=== PATIENT | female | born 1945 | race Caucasian/White ===

== ENCOUNTER 2017-12-21 21:50 | Inpatient (IN) ==
[2017-12-21] MEDS ORDERED: TORADOL 30 MG VIAL IVP STA (22:25)
[2017-12-21] MEDS ORDERED: ZOFRAN INJ 4 MG VIAL IVP ONE (22:25)
[2017-12-21] MEDS ORDERED: ZOFRAN INJ 4 MG VIAL ONE (22:26)
[2017-12-21] MEDS ORDERED: TORADOL 30 MG VIAL ONE (22:27)
--- NOTE | 2017-12-21 22:30 | ED.ABDFE ---
HPI - PCP Primary Care Physician: LISSET - Complaint Chief Complaint Doctors Comments: Patient is complaining of diffuse abdominal pain that is sharp like someone has a knife inside her stomach with the pain 10 of 10. States she has not been able to eat today and thought if she threw up it would make her feel better but she vomited and the pain is still there. States she has two bowel movements today. She is a patient of Dr. Pereyra in [place]. States she has had a hysterectomy, appendectomy and part of her intestine was removed by Dr. Kimball. She denies dysuria or delmar. She denies problems with stomach ulcers. Chief Complaint:: "I HAVE PAIN IN MY STOMACH, PAIN FEELS LIKE IT IS IN MY WHOLE GUT AREA SINCE ABOUT MID DAY. JUST STARTED GETTING NAUSEA." HAD TO NORMAL BOWEL MOVEMENTS TODAY. - Nurses notes reviewed Nurses Notes Review: Yes - Source History Provided: Patient - Mode of arrival Mode of Arrival: Ambulatory - Timing Onset of Chief Complaint: 12/21/17 Came on: Gradually - Duration Duration: Constant How lon Duration: Days - Location Location: Diffuse, Epigastric, Suprapubic - Severity Severity: Moderate - Quality Quality: Sharp, Generalized - Context Onset: At Rest History of: Abdominal surgery - Modifying Worsening Factors: Nothing Improving Factors: Nothing - Associated signs and symptoms Associated Signs and Symptoms: Nausea, Vomiting - Time seen Time Seen by Provider: 12/21/17 22:18 PMH - PMH Past Medical History: Yes Past Medical History: Hypertension Past Surgical History: Yes Surgical History: Appendectomy, Hysterectomy - Family History History of Family Medical Conditions: No - Social History Alcohol Use: Occasionally Do you use any recreational Drugs:: No Lives Where: Home - infectious screening Have you traveled outside the country in the last 6 months?: No ROS - Review of Systems Constitutional: No Symptoms Reported, Weakness, Loss of Appetite. negative: See HPI, Chills, Diaphoresis, Fever, Malaise, Irritable, Fatigue, Other Eyes: No Symptoms Reported ENTM: No Symptoms Reported Respiratoy: No Symptoms Reported. negative: See HPI, Productive Cough, Non- Productive Cough, Moist Cough, Dry Cough, Hacking Cough, Barking Cough, Brassy Cough, Orthopnea, Short of Breath, Stridor, Wheezing, Hemoptysis, Other Cardiovascular: No Symptoms Reported Gastrointestinal/Abdominal: No Symptoms Reported, Abdominal Pain, Nausea, Vomiting Genitourinary: No Symptoms Reported. negative: See HPI, Discharge, Dysuria, Frequency, Hematuria, Pain, Bleeding, Other Neurological: No Symptoms Reported Musculoskeletal: No Symptoms Reported, Back Pain (chronic back pain; no recent trauma). negative: See HPI, Gout, Joint Pain, Joint Swelling, Muscle Pain, Muscle Stiffness, Neck Pain, Right, Left, Neck, Chest wall, Rib(s), Back, Shoulder, Arm, Elbow, Forearm, Wrist, Hand, Pelvis, Hip, Leg, Knee, Ankle, Foot , Other Integumentary: No Symptoms Reported Hematologic/Lymphatic: No Symptoms Reported Endocrine: No Symptoms Reported Psychiatric: No Symptoms Reported. negative: See HPI, Anxiety, Depression, Hallucinations, Excessive crying, Suicidal, Other PE - General Limitations: No Limitations General Appearance: Alert, In Distress (moderate) - Head Head Exam: Normal Inspection, Atraumatic, Normocephalic - Eyes Eye exam: Normal Appearance, PERRL, EOMI. negative: Scleral Icterus, Conjunctival Injection, Nystagmus, Miosis, Mydrasis, Periorbital Swelling, Periorbital Tenderness, Other - ENT ENT Exam: Normal Exam, Normal Oropharynx, Normal External Ear Exam, Mucous Membranes Moist, TM's Normal Bilaterally - Neck Neck Exam: Normal Inspection, Full ROM, Trachea Midline - Chest Chest Inspection: Normal Inspection, Symmetric Chest Wall Rise. negative: Tenderness, Rash, Abscess, Other - Respiratory Respiratory Exam: Normal Lung Sounds Bilat Respiratory Exam: Bilateral Clear to Auscultation - Cardiovascular Cardiovascular Exam: Regular Rate, Normal Rhythm, Normal Heart Sounds - Abdominal Exam Abdominal Exam: Normal Inspection, Normal Bowel Sounds, Soft, Tenderness ( suprapubic and epigastric tenderness), Guarding Abdominal Tenderness: Epigastrium, Suprapubic, Moderate - Rectal Rectal Exam: Deferred - Back Back Exam: Normal Inspection, Full ROM, Tenderness (midline tenderness on palpation) - Extremeties Extremities Exam: Normal Inspection, Full ROM, Normal Capillary Refill. negative: Tenderness, Edema, Joint Swelling, Calf Tenderness, Other - External Exam: Female: Deferred : Speculum Exam (Female): Deferred : Bimanual Exam (female): Deferred - Neurologic Neurological Exam: Alert, Oriented X3, CN II-XII Intact, Reflexes Normal. negative: Normal Gait (gait not tested) - Psychiatric Psychiatric Exam: Normal Affect, Normal Mood - Skin Skin Exam: Warm, Dry, Intact, Normal Color. negative: Rash, Cyanosis, Diaphoresis, Erythema, Pallor, Mottled, Other - Vital Signs Vitals: Temperature 98.2 F Pulse Rate 92 Respiratory Rate 18 Blood Pressure 97/56 O2 Sat by Pulse Oximetry 95 Course - Reevaluation 1st: Improved - Consultation Called: 00:11 (Dr. Funez consulted states to admit to Hospitalist) Call Returned: 00:11 (Dr. Arndt to admit) - Education/Counseling Education/Counseling: Patient, Family Educated On: Treatment, Diagnosis, Needs for Follow Up ROR - Labs Reviewed Laboratory Results Reviewed?: Yes (All labs and x-ray results reviewed and discussed with patient.) Result Diagrams: 12/21/17 22:25 12/21/17 22:25 - XRAY XRAY Interpreted by: Radiologist (CT abdomen and pelvis: Several loops of inflames small bowel are present with wall thickening, submucosal edema and inflammatory changes within the mesentery.) - Labs Reviewed Laboratory: WBC 13.3 X10^3/uL (3.6-10.0) H 12/21/17 22:25 RBC 4.73 X10^6/uL (3.5-5.4) 12/21/17 22:25 Hgb 14.8 g/dL (12.0-16.0) 12/21/17 22:25 Hct 43.2 % (36.0-47.0) 12/21/17 22:25 MCV 91.4 fL (80.0-100.0) 12/21/17 22:25 MCH 31.4 pg (27.0-34.0) 12/21/17 22:25 MCHC 34.3 g/dL (33.0-35.0) 12/21/17 22:25 RDW 13.0 % (11.6-16.5) 12/21/17 22:25 Plt Count 271 X10^3/uL (150.0-450.0) 12/21/17 22:25 MPV 8.9 fL (7.4-11.0) 12/21/17 22:25 Neut % (Auto) 62.7 % (42.0-75.0) 12/21/17 22:25 Lymph % (Auto) 28.2 % (21.0-51.0) 12/21/17 22:25 [place] % (Auto) 6.7 % (0.0-13.0) 12/21/17 22:25 Eos % (Auto) 1.8 % (0.9-2.9) 12/21/17 22:25 Baso % (Auto) 0.6 % (0.2-1.0) 12/21/17 22:25 Neut # (Auto) 8.3 x10^3/uL (2.2-4.8) H 12/21/17 22:25 Lymph # (Auto) 3.7 X10^3/uL (1.3-2.9) H 12/21/17 22:25 [place] # (Auto) 0.9 x10^3/uL (0.3-0.8) H 12/21/17 22:25 Eos # (Auto) 0.2 x10^3/uL (0.0-0.2) 12/21/17: Baso # (Auto) 0.1 X10^3/uL (0.0-0.1) 12/21/17 22:25 Absolute Nucleated RBC 0.0 /100WBC 12/21/17 22:25 Sodium 138 mmol/L (136-145) 12/21/17 22:25 Corrected Sodium 138 mmol/L (136-145) 12/21/17 22:25 Potassium 3.6 mmol/L (3.5-5.1) 12/21/17 22:25 Chloride 100 mmol/L (98-107) 12/21/17 22:25 Carbon Dioxide 31.9 mmol/L (21-32) 12/21/17 22:25 BUN 17 mg/dL (7-18) 12/21/17 22:25 Creatinine 1.26 mg/dL (0.55-1.02) H 12/21/17 22:25 Est GFR (MDRD) Af Amer 54 (>60) L 12/21/17 22:25 Est GFR (MDRD) Non-Af 44 (>60) L 12/21/17 22:25 Glucose 119 mg/dL (65-99) H 12/21/17 22:25 Lactic Acid 2.0 mmol/L (0.4-2.0) 12/21/17 23:23 Calcium 9.4 mg/dL (8.5-10.1) 12/21/17 22:25 Corrected Calcium TNP 12/21/17 22:25 Total Bilirubin 0.40 mg/dL (0.2-1.0) 12/21/17 22:25 AST 13 Units/L (15-37) L 12/21/17 22:25 ALT 15 Units/L (12-78) 12/21/17 22:25 Alkaline Phosphatase 66 Units/L (46-116) 12/21/17 22:25 Total Protein 7.7 g/dL (6.4-8.2) 12/21/17 22:25 Albumin 3.7 g/dL (3.4-5.0) 12/21/17 22:25 Globulin 4.0 g/dL (2.5-4.5) 12/21/17 22:25 Albumin/Globulin Ratio 0.9 Ratio (1.1-2.1) L 12/21/17 22:25 Amylase 34 Units/L (25-115) 12/21/17 22:25 Lipase 70 Units/L (73-393) L 12/21/17 22:25 H. pylori IgG Antibody Negative (NEGATIVE) 12/21/17 22:25 - Diagnosis Discharge Problem: Acute abdominal pain, Enteritis, Hiatal hernia, Hyperglycemia Chronic kidney disease (CKD) Qualifiers: Chronic kidney disease stage: stage 3 (moderate) Qualified Code(s): N18.3 - Chronic kidney disease, stage 3 (moderate) - Discharge Plan Disposition: ADMITTED INPATIENT Condition: Stable
[2017-12-21 22:35] LABS: BASOPHILS # (AUTO) 0.1 X10^3/uL (0.0-0.1); BASOPHILS % (AUTO) 0.6 % (0.2-1.0); EOSINOPHILS # (AUTO) 0.2 x10^3/uL (0.0-0.2); EOSINOPHILS % (AUTO) 1.8 % (0.9-2.9); HEMATOCRIT 43.2 % (36.0-47.0); HEMOGLOBIN 14.8 g/dL (12.0-16.0); LYMPHOCYTES # (AUTO) 3.7 X10^3/uL (1.3-2.9); LYMPHOCYTES % (AUTO) 28.2 % (21.0-51.0); MEAN CORPUSCULAR HEMOGLOBIN 31.4 pg (27.0-34.0); MEAN CORPUSCULAR HGB CONC 34.3 g/dL (33.0-35.0); MEAN CORPUSCULAR VOLUME 91.4 fL (80.0-100.0); MEAN PLATELET VOLUME 8.9 fL (7.4-11.0); MONOCYTES # (AUTO) 0.9 x10^3/uL (0.3-0.8); MONOCYTES % (AUTO) 6.7 % (0.0-13.0); NEUTROPHILS # (AUTO) 8.3 x10^3/uL (2.2-4.8); NEUTROPHILS % (AUTO) 62.7 % (42.0-75.0); PLATELET COUNT 271 X10^3/uL (150.0-450.0); RED BLOOD COUNT 4.73 X10^6/uL (3.5-5.4); WHITE BLOOD COUNT 13.3 X10^3/uL (3.6-10.0)
[2017-12-21 22:44] LABS: ALANINE AMINOTRANSFERASE 15 Units/L (12-78); ALBUMIN 3.7 g/dL (3.4-5.0); ALKALINE PHOSPHATASE 66 Units/L (46-116); AMYLASE 34 Units/L (25-115); ASPARTATE AMINO TRANSFERASE 13 Units/L (15-37); BLOOD UREA NITROGEN 17 mg/dL (7-18); CALCIUM 9.4 mg/dL (8.5-10.1); CARBON DIOXIDE 31.9 mmol/L (21-32); CHLORIDE 100 mmol/L (98-107); COR NA(FOR HYPERGLY) 138 mmol/L (136-145); CREATININE 1.26 mg/dL (0.55-1.02); LIPASE 70 Units/L (73-393); SODIUM 138 mmol/L (136-145); TOTAL PROTEIN 7.7 g/dL (6.4-8.2); eGFR NON BLACK RACES 44 (>60)
[2017-12-21] MEDS ORDERED: NS 1000 ML 1,000 ML IV SCH (23:00)
[2017-12-21] MEDS ORDERED: ROCEPHIN VIAL 1 GRAM 1 G in NS 100 ML IV + SPIKE MINIBAG* 100 ML IV ONE (23:16)
[2017-12-21] MEDS ORDERED: NS 100 ML IV + SPIKE MINIBAG* 100 ML IV ONE (23:19)
[2017-12-21] MEDS ORDERED: ROCEPHIN VIAL 1 GRAM ONE (23:19)
[2017-12-21] MEDS ORDERED: MORPHINE SULFATE INJ 2 MG INJ IVP ONE (23:30)
[2017-12-21] MEDS ORDERED: ZOFRAN INJ 4 MG VIAL IVP PRN (23:34)
[2017-12-21] MEDS ORDERED: MORPHINE SULFATE INJ 2 MG INJ IVP PRN (23:34)
[2017-12-21] MEDS ORDERED: PROTONIX TAB 40 MG PO SCH (23:45)
[2017-12-22] MEDS ORDERED: POTASSIUM CHL 40 MEQ/NS 0.45% 500 ML IV PRN (00:47)
[2017-12-22] MEDS ORDERED: K-RIDER 10 MEQ/NS 100 ML 10 MEQ/100 ML BAG IV PRN (00:47)
[2017-12-22] MEDS ORDERED: POTASSIUM CHL 60 MEQ/NS 0.45% 500 ML IV PRN (00:47)
[2017-12-22] MEDS ORDERED: K-LYTE EFFERVESCENT PO PRN (00:47)
[2017-12-22] MEDS ORDERED: POTASSIUM CHLORIDE LIQ 20 MEQ UDC PO PRN (00:47)
[2017-12-22 01:16] VITALS: BMI 21.1
[2017-12-22] MEDS: D5 1/2 NS + KCL 20 MEQ/L 1,000 ML IV SCH ×2 (01:32→11:00)
[2017-12-22] MEDS: MAGNESIUM SULFATE 1 GRAM/100 mL PREMIX 1 GM/100 ML BAG IV PRN ×2 (01:33→02:40)
[2017-12-22] MEDS: PROTONIX INJ 40 MG VIAL IVP SCH ×2 (01:33→09:14)
[2017-12-22 05:48] LABS: BASOPHILS % (AUTO) 0.5 % (0.2-1.0); EOSINOPHILS # (AUTO) 0.1 x10^3/uL (0.0-0.2); EOSINOPHILS % (AUTO) 1.5 % (0.9-2.9); HEMATOCRIT 36.2 % (36.0-47.0); HEMOGLOBIN 12.4 g/dL (12.0-16.0); LYMPHOCYTES # (AUTO) 2.2 X10^3/uL (1.3-2.9); LYMPHOCYTES % (AUTO) 28.6 % (21.0-51.0); MEAN CORPUSCULAR HEMOGLOBIN 31.7 pg (27.0-34.0); MEAN CORPUSCULAR HGB CONC 34.2 g/dL (33.0-35.0); MEAN CORPUSCULAR VOLUME 92.6 fL (80.0-100.0); MEAN PLATELET VOLUME 9.1 fL (7.4-11.0); MONOCYTES # (AUTO) 0.5 x10^3/uL (0.3-0.8); MONOCYTES % (AUTO) 6.8 % (0.0-13.0); NEUTROPHILS # (AUTO) 4.9 x10^3/uL (2.2-4.8); NEUTROPHILS % (AUTO) 62.6 % (42.0-75.0); PLATELET COUNT 239 X10^3/uL (150.0-450.0); RED BLOOD COUNT 3.91 X10^6/uL (3.5-5.4); RED CELL DISTRIBUTION WIDTH 13.2 % (11.6-16.5); WHITE BLOOD COUNT 7.8 X10^3/uL (3.6-10.0)
[2017-12-22 06:15] LABS: ALANINE AMINOTRANSFERASE 12 Units/L (12-78); ALBUMIN 2.7 g/dL (3.4-5.0); ALKALINE PHOSPHATASE 51 Units/L (46-116); ASPARTATE AMINO TRANSFERASE 9 Units/L (15-37); BLOOD UREA NITROGEN 15 mg/dL (7-18); CALCIUM 8.3 mg/dL (8.5-10.1); CARBON DIOXIDE 28.2 mmol/L (21-32); CHLORIDE 103 mmol/L (98-107); COR CA(FOR HYPOALB) 9.3 mg/dL (8.5-10.1); COR NA(FOR HYPERGLY) 138 mmol/L (136-145); CREATININE 0.99 mg/dL (0.55-1.02); SODIUM 137 mmol/L (136-145); TOTAL PROTEIN 5.9 g/dL (6.4-8.2); eGFR NON BLACK RACES 59 (>60)
[2017-12-22] MEDS ORDERED: PROTONIX INJ 40 MG VIAL IVP SCH (09:00)
[2017-12-22 09:14] LABS: BILIRUBIN,URINE NEGATIVE (NEGATIVE); BLOOD/HEMOGLOBIN,URINE NEGATIVE (NEGATIVE); GLUCOSE, URINE NEGATIVE (NEGATIVE); KETONES,URINE NEGATIVE (NEGATIVE); LEUKOCYTE ESTERASE ,URINE NEGATIVE (NEGATIVE); NITRITES,URINE NEGATIVE (NEGATIVE); PROTEIN,URINE 1+ (NEGATIVE); UROBILINOGEN,URINE NORMAL (NORMAL)
[2017-12-22 09:31] LABS: APPEARANCE,URINE SLIGHTLY HAZY (CLEAR); COLOR,URINE YELLOW (YELLOW)
[2017-12-22 09:32] LABS: BACTERIA,URINE 1+ /HPF (NEGATIVE); HYALINE CASTS, URINE MODERATE /LPF (NEGATIVE); RBC,URINE 0-2 /HPF (NONE SEEN); SQUAMOUS EPITHELIAL CELL,UR FEW /HPF (NEGATIVE)
--- NOTE | 2017-12-22 09:43 | RAD ---
Examination: Abdomen with PA chest, three views History: Abdominal pain Findings: Essentially negative PA chest. Additional views of the abdomen were obtained, supine and up right. Normal gas pattern without evidence for obstruction or perforation. No definite visceral enlar gement or ascites. Impression: No acute or significant findings. Reported By:
--- NOTE | 2017-12-22 11:03 | DR.H&P ---
H&P - History & Physical for Day of: H&P Date: 12/22/17 - Chief Complaint Chief Complaint: ABDOMINAL PAIN, N/V - History of Present Illness History of Present Illness: PT IS 72 WF ER ADMISSION AFTER PRESENTING WITH CO diffuse abdominal pain that is sharp like someone has a knife inside her stomach with the pain 10 of 10. States she has not been able to eat today and thought if she threw up it would make her feel better but she vomited and the pain is still there. States she has two bowel movements today. She is a patient of Dr. Pereyra in [place]. States she has had a hysterectomy, appendectomy and part of her intestine was removed by Dr. Kimball. She denies dysuria or delmar. She denies problems with stomach ulcers. Pt denies previous EGD, last cololscopy over [address] Kimball. Pt NPO, admitted for evaluation of acute abdominal pain, surgical consult - Past Medical History Past Medical History: Hypertension - Past Surgical History Surgical History: Appendectomy, Hysterectomy, Tonsillectomy, Other - Family History Family Medical History: Cancer - Social History Does patient currently use any type of tobacco product: No Have you used tobacco products in the last 12 months: No Type of Tobacco Use: None Does any household member use tobacco: No Alcohol Use: DAILY Drug Use: None - Medications Home Medications: No Known Drug Allergies Allergy (Verified 12/21/17 22:02) CONTINUE taking the following medications NK 12/22/17 [History] - Review of Systems Constitutional: Weakness, Malaise ENT: No Symptoms Reported Respiratory: No Symptoms Reported Cardiovascular: No Symptoms Reported Gastrointestinal: Nausea, Vomiting, Abdominal Pain Genitourinary: No Symptoms Reported Musculoskeletal: No Symptoms Reported Skin: No Symptoms Reported Neurological: No Symptoms Reported - Physical Exam Vital Signs: Temperature 98.0 F Pulse Rate [Apical] 60 Pulse Rate [Left Brachial] 74 Pulse Rate 92 Respiratory Rate 12 Blood Pressure [Left Arm] 98/55 Blood Pressure 97/56 O2 Sat by Pulse Oximetry 97 Oriented: Normal Eyes: Normal Ear: Normal Nose: Normal Throat: Normal Respiratory: Clear Throughout Cardiovascular: Normal : Normal Auscultation: Bowel Sounds: Normal Palpation: Normal Tenderness: Diffuse Skin: Normal Musculoskeletal: Normal Psychiatric: Anxiety Affect: Anxious Speech Pattern: Clear, Appropriate - Assessment/Plan (1) Acute abdominal pain Status: Acute Plan: admission labs, iv hydration. npo until surgical consultation. pain and nausea control, verify home meds. bp monitoring, ct abd pelvis (2) Enteritis Status: Acute (3) Hiatal hernia Status: Acute - Allergies Allergies/Adverse Reactions: Allergies Allergy/AdvReac Type Severity Reaction Status Date / Time No Known Drug Allergies Allergy Verified 12/21/17 22:02
[2017-12-22] MEDS ORDERED: MORPHINE SULFATE INJ 2 MG INJ IVP PRN (12:25)
[2017-12-22] MEDS ORDERED: D5 1/2 NS + KCL 20 MEQ/L 1,000 ML IV SCH (13:00)
[2017-12-22] MEDS ORDERED: NS 1000 ML 1,000 ML ONE (13:14)
[2017-12-22] MEDS ORDERED: NS 1000 ML 1,000 ML IV ONE (13:14)
[2017-12-22 13:26] LABS: ABG BASE EXCESS -1.7 mmol/L (-2.0-2.0)
[2017-12-22 13:27] LABS: FRACTIONATED INSPIRED OXYGEN 21
[2017-12-22 13:37] LABS: BASOPHILS % (AUTO) 0.1 % (0.2-1.0); EOSINOPHILS % (AUTO) 0.5 % (0.9-2.9); HEMATOCRIT 27.1 % (36.0-47.0); HEMOGLOBIN 9.3 g/dL (12.0-16.0); LYMPHOCYTES # (AUTO) 2.6 X10^3/uL (1.3-2.9); LYMPHOCYTES % (AUTO) 74.6 % (21.0-51.0); MEAN CORPUSCULAR HGB CONC 34.3 g/dL (33.0-35.0); MEAN CORPUSCULAR VOLUME 93.4 fL (80.0-100.0); MONOCYTES # (AUTO) 0.1 x10^3/uL (0.3-0.8); MONOCYTES % (AUTO) 2.8 % (0.0-13.0); NEUTROPHILS # (AUTO) 0.8 x10^3/uL (2.2-4.8); PLATELET COUNT 174 X10^3/uL (150.0-450.0); WHITE BLOOD COUNT 3.5 X10^3/uL (3.6-10.0)
--- NOTE | 2017-12-22 13:49 | RAD ---
Examination: Portable AP chest History: Low blood pressure Findings: Normal heart size with clear lungs and pleural spaces. Impression: No acute or significant findings. Reported By:
[2017-12-22 13:53] LABS: LACTIC ACID 1.5 mmol/L (0.4-2.0)
[2017-12-22 13:55] LABS: BLOOD UREA NITROGEN 12 mg/dL (7-18); CALCIUM 7.8 mg/dL (8.5-10.1); CARBON DIOXIDE 25.6 mmol/L (21-32); CHLORIDE 104 mmol/L (98-107); COR NA(FOR HYPERGLY) 138 mmol/L (136-145); CREATININE 0.93 mg/dL (0.55-1.02); SODIUM 137 mmol/L (136-145); TROPONIN I < 0.02 ng/mL (0-1.5); eGFR NON BLACK RACES > 60 (>60)
[2017-12-22 13:59] LABS: ALANINE AMINOTRANSFERASE 11 Units/L (12-78); ALBUMIN 2.5 g/dL (3.4-5.0); ALKALINE PHOSPHATASE 50 Units/L (46-116); ASPARTATE AMINO TRANSFERASE 13 Units/L (15-37); CKMB % 2.1 % (<4); CREATINE KINASE 47 Units/L (26-192); CREATINE KINASE MB < 1.0 ng/mL (0-4.0); TOTAL PROTEIN 5.6 g/dL (6.4-8.2)
[2017-12-22] MEDS ORDERED: SOLU-Medrol 40 MG VIAL IVP SCH (14:00)
[2017-12-22 14:06] LABS: BAND NEUTROPHILS % 2 % (0-10)
[2017-12-22 14:07] LABS: PLATELET MORPHOLOGY COMMENT NORMAL (NORMAL)
--- NOTE | 2017-12-22 14:58 | RAD ---
Examination: Portable AP chest History: Central line Findings: Normal heart size with clear lungs and pleural spaces. There is a left subclavian catheter present extending to the cavoatrial junction. There is no evidence for pleural fluid or pneumothorax. Impression: Surgical catheter placement/position as noted. Reported By:
[2017-12-22] MEDS ORDERED: LR 1000 ML IV 1,000 ML IV ONE ×2 (15:08→16:20)
[2017-12-22] MEDS ORDERED: NS 100 ML IV 100 ML IV ONE (15:11)
--- NOTE | 2017-12-22 17:00 | CT ---
History: Abdominal pain Study: CTA of the abdomen and pelvis without and with 100 mL Omnipaque 350 IV contrast. Three-dimensi onal MIPS of the aorta were displayed in multiple degrees of obliquity. Sagittal and coronal MIPS of the artery's were also displayed. Comparison: Yesterday Findings: There is a tiny right pleural effusion new. There is mild ascites. There is subsegmental at electasis at the right lung base. The liver and spleen and pancreas and kidneys and adrenal glands re main unremarkable. The gallbladder is unremarkable. There is no aortic aneurysm or dissection. The MIKALA and SMA and celiac axis and renal artery's are wid larry patent. There is no bowel distention. No significant diverticular disease is demonstrated. There is a Gardner balloon catheter in the urinary bladder. Impression: 1. Tiny right pleural effusion and mild ascites 2. Normal abdominal aorta and mesenteric artery's. Reported By:
[2017-12-22 18:03] LABS: HEMATOCRIT 37.7 % (36.0-47.0); HEMOGLOBIN 12.6 g/dL (12.0-16.0)
--- NOTE | 2017-12-22 18:18 | PCM.DCPLAN ---
Discharge Summary - Admission Date Date of Admission: 12/22/17 - Discharge Date Discharge Date: 12/22/17 - Discharge Diagnoses Discharge Diagnosis: 1. Chest pain; rule out cardiac ischemia/injury 2. Transient hypotension; rule out secondary to cardiac ischemia 3. Small bowel enteritis; rule out mesenteric ischemia/infarct 4. Travel abdominal pain; rule out mesenteric ischemia/infarct - Discharge Medications Discharge Medications: Home Medication List alprazolam [Xanax] 0.5 mg PO BID 12/22/17 [History] estradiol 1 mg PO QDAY 12/22/17 [History] levothyroxine [Synthroid] 100 mcg PO QDAY 12/22/17 [History] lisinopril-hydrochlorothiazide 1 tab PO QDAY 12/22/17 [History] tramadol 50 mg PO TID 12/22/17 [History] zolpidem [Ambien] 10 mg PO QHS PRN 12/22/17 [History] Prescriptions: - Hospital Course Vital Signs: Temperature 98.7 F Pulse Rate [Apical] 81 Pulse Rate [Left Brachial] 74 Pulse Rate 92 Respiratory Rate 17 Blood Pressure [Left Arm] 150/66 Blood Pressure 97/56 O2 Sat by Pulse Oximetry 100 Latest Lab Results: Laboratory Last Values WBC 3.5 X10^3/uL (3.6-10.0) L 12/22/17 13:25 RBC 2.90 X10^6/uL (3.5-5.4) L 12/22/17 13:25 Hgb 12.6 g/dL (12.0-16.0) D 12/22/17 17:35 Hct 37.7 % (36.0-47.0) 12/22/17 17:35 MCV 93.4 fL (80.0-100.0) 12/22/17 13:25 MCH 32.0 pg (27.0-34.0) 12/22/17 13:25 MCHC 34.3 g/dL (33.0-35.0) 12/22/17 13:25 RDW 13.0 % (11.6-16.5) 12/22/17 13:25 Plt Count 174 X10^3/uL (150.0-450.0) 12/22/17 13:25 Plt Count Comment Adequate (ADEQUATE) 12/22/17 13:25 MPV 9.0 fL (7.4-11.0) 12/22/17 13:25 Neut % (Auto) 22.0 % (42.0-75.0) L 12/22/17 13:25 Lymph % (Auto) 74.6 % (21.0-51.0) H 12/22/17 13:25 [place] % (Auto) 2.8 % (0.0-13.0) 12/22/17 13:25 Eos % (Auto) 0.5 % (0.9-2.9) L 12/22/17 13:25 Baso % (Auto) 0.1 % (0.2-1.0) L 12/22/17 13:25 Neut # (Auto) 0.8 x10^3/uL (2.2-4.8) L 12/22/17 13:25 Lymph # (Auto) 2.6 X10^3/uL (1.3-2.9) 12/22/17 13:25 [place] # (Auto) 0.1 x10^3/uL (0.3-0.8) L 12/22/17 13:25 Eos # (Auto) 0.0 x10^3/uL (0.0-0.2) 12/22/17 13:25 Baso # (Auto) 0.0 X10^3/uL (0.0-0.1) 12/22/17 13:25 Absolute Nucleated RBC 0.1 /100WBC 12/22/17 13:25 Total Counted 100 12/22/17 13:25 Neutrophils % (Manual) 33 % (39-76) L 12/22/17 13:25 Band Neutrophils % 2 % (0-10) 12/22/17 13:25 Lymphocytes % (Manual) 61 % (13-43) H 12/22/17 13:25 Monocytes % (Manual) 2 % (4-9) L 12/22/17 13:25 Atypical Lymphocytes 2 12/22/17 13:25 Plt Morphology Comment Normal (NORMAL) 12/22/17 13:25 RBC Morphology Normal (NORMAL) 12/22/17 13:25 ESR 6 MM/HOUR (0-20) 12/22/17 05:08 Sample Site Right brachial 12/22/17 13:11 ABG pH 7.390 (7.35-7.45) 12/22/17 13:11 ABG pCO2 38.0 mmHg (35.0-45.0) 12/22/17 13:11 ABG pO2 62.0 mmHg (80.0-100.0) L 12/22/17 13:11 ABG HCO3 23.0 mmol/L (22-26) 12/22/17 13:11 ABG O2 Saturation 91.0 % (90-100) 12/22/17 13:11 ABG Base Excess -1.7 mmol/L (-2.0-2.0) 12/22/17 13:11 Bruce Test Na 12/22/17 13:11 A-a Gradient 40.0 mmHg 12/22/17 13:11 FiO2 21 12/22/17 13:11 Blood Gas Comments Augustina well aw 12/22/17 13:11 Sodium 137 mmol/L (136-145) 12/22/17 13:25 Corrected Sodium 138 mmol/L (136-145) 12/22/17 13:25 Potassium 4.4 mmol/L (3.5-5.1) 12/22/17 13:25 Chloride 104 mmol/L (98-107) 12/22/17 13:25 Carbon Dioxide 25.6 mmol/L (21-32) 12/22/17 13:25 BUN 12 mg/dL (7-18) 12/22/17 13:25 Creatinine 0.93 mg/dL (0.55-1.02) 12/22/17 13:25 Est GFR (MDRD) Af Amer > 60 (>60) 12/22/17 13:25 Est GFR (MDRD) Non-Af > 60 (>60) 12/22/17 13:25 Glucose 151 mg/dL (65-99) H 12/22/17 13:25 Lactic Acid 1.5 mmol/L (0.4-2.0) 12/22/17 13:25 Calcium 7.8 mg/dL (8.5-10.1) L 12/22/17 13:25 Corrected Calcium 9.0 mg/dL (8.5-10.1) 12/22/17 13:25 Magnesium 2.4 mg/dL (1.7-2.9) 12/22/17 05:08 Total Bilirubin 0.20 mg/dL (0.2-1.0) 12/22/17 13:25 AST 13 Units/L (15-37) L 12/22/17 13:25 ALT 11 Units/L (12-78) L 12/22/17 13:25 Alkaline Phosphatase 50 Units/L (46-116) 12/22/17 13:25 Creatine Kinase 47 Units/L (26-192) 12/22/17 13:25 CK-MB (CK-2) < 1.0 ng/mL (0-4.0) 12/22/17 13:25 CK/CKMB % Calc 2.1 % (<4) 12/22/17 13:25 Troponin I < 0.02 ng/mL (0-1.5) 12/22/17 13:25 Total Protein 5.6 g/dL (6.4-8.2) L 12/22/17 13:25 Albumin 2.5 g/dL (3.4-5.0) L 12/22/17 13:25 Globulin 3.1 g/dL (2.5-4.5) 12/22/17 13:25 Albumin/Globulin Ratio 0.8 Ratio (1.1-2.1) L 12/22/17 13:25 Amylase 34 Units/L (25-115) 12/21/17 22:25 Lipase 70 Units/L (73-393) L 12/21/17 22:25 Specimen Type Clean catch urine 12/22/17 09:03 Urine Color Yellow (YELLOW) 12/22/17 09:03 Urine Appearance Slightly hazy (CLEAR) 12/22/17 09:03 Urine pH 5.0 (5.0 - 8.0) 12/22/17 09:03 Ur Specific [place] 1.025 (1.000-1.030) 12/22/17 09:03 Urine Protein 1+ (NEGATIVE) 12/22/17 09:03 Urine Glucose (UA) Negative (NEGATIVE) 12/22/17 09:03 Urine Ketones Negative (NEGATIVE) 12/22/17 09:03 Urine Occult Blood Negative (NEGATIVE) 12/22/17 09:03 Urine Nitrite Negative (NEGATIVE) 12/22/17 09:03 Urine Bilirubin Negative (NEGATIVE) 12/22/17 09:03 Urine Urobilinogen Normal (NORMAL) 12/22/17 09:03 Ur Leukocyte Esterase Negative (NEGATIVE) 12/22/17 09:03 Urine RBC 0-2 /HPF (NONE SEEN) 12/22/17 09:03 Urine WBC 0-2 /HPF (NONE SEEN) 12/22/17 09:03 Ur Squamous Epith Cells Few /HPF (NEGATIVE) 12/22/17 09:03 Urine Bacteria 1+ /HPF (NEGATIVE) 12/22/17 09:03 Hyaline Casts Moderate /LPF (NEGATIVE) 12/22/17 09:03 Ur Culture Indicated? No/not indicated 12/22/17 09:03 H. pylori IgG Antibody Negative (NEGATIVE) 12/21/17 22:25 Hospital Course: As stated in history of present illness the patient is a 72-year-old white female who presented to the [facility] emergency room complaining of intractable abdominal pain. Patient with a CT scan of abdomen and pelvis while in the emergency room setting that revealed a dilated loop of small bowel with bowel wall thickening noted. The possibility of ischemic versus infectious enteritis was suspected. Patient was given IV Rocephin and admitted to the IMCU unit for further workup. The patient's antibiotics were changed to IV Cipro and Flagyl. At approximately 12 noon on 12/22/2017 patient began complaining of intractable abdominal pain as well as chest pain. Patient became profoundly hypotensive with systolic pressures in the 50s and 60s. A central line was placed which revealed decreased venous pressures suggestive of hypovolemia. Patient was given a 2 L bolus with orders to start a Levophed drip if necessary. As soon as the patient received a fluid bolus her pressures returned to normal, her diaphoresis resolved, and the patient did not require pressor support. Patient' s troponin level was unremarkable. EKG revealed sinus tachycardia with ischemic inferior changes noted. Patient continued to complain of abdominal pain and was noted to have involuntary guarding on exam with diffuse tenderness. A CTA of the abdomen was subsequently performed that revealed no evidence of mesenteric ischemia/obstruction. The patient's blood pressures have subsequently remained stable for approximately 4 hours following her fluid bolus. Patient has had no further complaints of chest pain. Patient is being transferred to [facility] in [facility] for further workup. - Discharge Plan Disposition: [facility] Condition: Stable - Follow ups/Referrals Follow ups/Referrals: NFD,None [Primary Care Provider] - 3 days - Instructions
[2017-12-22 18:20] VITALS: BP 135/63
[2017-12-22 18:31] LABS: CREATINE KINASE 40 Units/L (26-192); CREATINE KINASE MB < 1.0 ng/mL (0-4.0); TROPONIN I < 0.02 ng/mL (0-1.5)
[2017-12-22 18:41] LABS: CKMB % 2.5 % (<4)
[2017-12-22] MEDS ORDERED: CIPRO IV 400 MG PREMIX* 400 MG/200 ML IV.SOLN. IV SCH (21:00)
[2017-12-22] MEDS ORDERED: FLAGYL IV PREMIX 500 MG BAG 500 MG/100 ML BAG IV SCH (21:00)
== END 2017-12-22 19:57 | disposition short-term general hospital (02) | DRG 392 ==
LOC: ICU 21:52 → ER 21:52 → ICU 12-22 00:34
PROVIDERS: ADMIT Internal Medicine; ATTEND Internal Medicine
DX: I12.9 Hypertensive chronic kidney disease with stage 1 through stage 4 chronic kidney disease, or unspecified chronic kidney disease; E11.65 Type 2 diabetes mellitus with hyperglycemia; K44.9 Diaphragmatic hernia without obstruction or gangrene; K52.89 Other specified noninfective gastroenteritis and colitis; R10.84 Generalized abdominal pain; I87.2 Venous insufficiency (chronic) (peripheral); I95.89 Other hypotension; R11.2 Nausea with vomiting, unspecified; N18.3 Chronic kidney disease, stage 3 (moderate)
CPT/HCPCS: 36415; 36556; 36600; 71010; 71045; 74022; 74174; 74176; 80053; 81001; 82150; 82378; 82550; 82553; 82803; 83605; 83690; 83735; 84484; 85014; 85018; 85025; 85652; 86677; 87040; 87086; 93005; 93010; 96365; 96374; 96375; 99221; 99283; 99284; A4216; A4222; C9113; G0378; J0696; J1885; J2270; J2405; J2920; J3475; J7030; J7050; J7120